=== PATIENT | female | born 1960 | race Caucasian/White ===

== ENCOUNTER → 2024-08-13 | Outpatient (REF) | payer OTHER ==
[2024-08-13 14:08] LABS: CREATININE, SERUM 0.98 mg/dL (0.57-1.11)
== END ==
LOC: CT 13:13
PROVIDERS: ATTEND Internal Medicine Interventional Cardiology
DX: R07.9 Chest pain, unspecified (principal); I48.91 Unspecified atrial fibrillation; I25.10 Atherosclerotic heart disease of native coronary artery without angina pectoris; I28.8 Other diseases of pulmonary vessels
CPT/HCPCS: 36415; 71275; 82565; 84520

== ENCOUNTER 2024-10-29 10:09 | Day surgery (SDC) | payer BC ==
[~2024-10-29] VITALS: Ht 167.6 cm; Wt 113.4 kg
[2024-10-29] VITALS (10 sets, daily range): BP systolic 93–125; BP diastolic 43–91; PULSE 82–94; RESP 11–21; TEMP 97; O2SAT 97–100
[~2024-10-29 10:09] MED LIST: ALDACTONE50 MG PO; CARDIZEM CD180 MG PO; CETIRIZINE HCL5 MG; ELIQUIS5 MG PO; FARXIGA5 MG; FLUOXETINE HCL20 MG PO; METOPROLOL SUCC50 MG PO; OMEPRAZOLE40 MG PO; OZEMPIC0.25 MG/02; PRAVASTATIN SOD40 MG; SYNTHROID125 MCG PO
[2024-10-29] MEDS ORDERED: BENZOCAINE 20% SPR 60 ML CAN ONE (11:57)
[2024-10-29] MEDS ORDERED: SODIUM CHLORIDE 0.9% 1000ML 1,000 ML ONE (11:57)
[2024-10-29] MEDS ORDERED: BENZOCAINE/TETRACAINE/BUTAMBEN AERO SPRAY 56 GM CAN ONE (12:37)
[2024-10-29] MEDS ORDERED: FENTANYL CITRATE/PF 100MCG/2 ML INJ ONE (13:05)
[2024-10-29] MEDS ORDERED: LIDOCAINE HCL 2% LOCAL INJ 5 ML SDV VIAL INJ ONE (13:05)
[2024-10-29] MEDS ORDERED: PROPOFOL IV EMULSION 10 MG/ML 20 ML VIAL ONE ×2 (13:05)
== END 2024-10-29 14:45 | disposition home or self-care (01) ==
LOC: CATH LAB 10:09 → EDSTATUS 12:00 → CATH LAB 14:45
PROVIDERS: ATTEND Internal Medicine Interventional Cardiology
DX: I48.19 Other persistent atrial fibrillation (principal); E03.9 Hypothyroidism, unspecified; E78.5 Hyperlipidemia, unspecified; K21.9 Gastro-esophageal reflux disease without esophagitis; F32.A Depression, unspecified; Z79.02 Long term (current) use of antithrombotics/antiplatelets; Z79.84 Long term (current) use of oral hypoglycemic drugs; Z79.85 Long-term (current) use of injectable non-insulin antidiabetic drugs; Z79.899 Other long term (current) drug therapy; Z68.41 Body mass index [BMI] 40.0-44.9, adult; Z95.818 Presence of other cardiac implants and grafts
CPT/HCPCS: 36415; 82948; 93307; 93312; 93320; 93325; 93355; J2003; J7030